=== PATIENT | male | born 1990 | race African-American/Black ===

== ENCOUNTER 2021-08-09 10:20 | Emergency (ER) | payer OTHER ==
[~2021-08-09] VITALS: Ht 190.5 cm; Wt 88.5 kg
[2021-08-09 10:33] VITALS: BP 110/70
[2021-08-09 10:59] LABS: BASOPHILS % (AUTO) 1.5 % (0.0-5.0); EOSINOPHILS % (AUTO) 12.7 % (0.0-8.0); HEMATOCRIT 35.7 % (42-54); LYMPHOCYTES % (AUTO) 23.7 % (21.0-51.0); MEAN CORPUSCULAR HGB CONC 36.7 g/dL (32.0-36.0); MEAN CORPUSCULAR VOLUME 81.7 fL (79-99); MONOCYTES % (AUTO) 23.7 % (3.0-13.0); NEUTROPHILS % (AUTO) 38.1 % (40.0-77.0); PLATELET COUNT (AUTO) 337 K/uL (130-400); RED BLOOD CELL COUNT(AUTO) 4.37 MIL/uL (4.50-6.20); WHITE BLOOD COUNT (AUTO) 7.2 K/uL (4.8-10.8)
[2021-08-09 11:03] LABS: CREATININE 1.2 mg/dL (0.5-1.5); POTASSIUM 4.1 mmol/L (3.5-5.1)
[2021-08-09 11:05] LABS: INR 1.02 (0.85-1.15); PROTHROMBIN TIME 11.1 SEC (9.6-11.6)
[2021-08-09 11:07] LABS: PARTIAL THROMBOPLASTIN TIME 27.7 SEC (26.3-35.5)
[2021-08-09 11:08] LABS: ALBUMIN 4.3 g/dL (3.5-5.0); BILIRUBIN,TOTAL 2.1 mg/dL (0.2-1.0); TOTAL PROTEIN, SERUM 8.7 g/dL (6.0-8.3)
[2021-08-09] MEDS ORDERED: PREDNISONE 20 MG TABLET PO ONE (12:30)
[2021-08-09] MEDS ORDERED: ALBUTEROL 0.083% 2.5 MG/3 ML INH IH ONE ×2 (12:30→13:33)
[2021-08-09] MEDS ORDERED: PRED20TA3 PO (12:59)
[2021-08-09] MEDS ORDERED: ALBU6.7H9 IH (12:59)
[2021-08-09 13:51] VITALS: BP 112/76
== END 2021-08-09 13:51 | disposition home or self-care (01) ==
LOC: EDH 10:20
DX: J20.9 Acute bronchitis, unspecified (principal); J45.901 Unspecified asthma with (acute) exacerbation; Z20.822 Contact with and (suspected) exposure to COVID-19; Z79.52 Long term (current) use of systemic steroids; Z79.899 Other long term (current) drug therapy; Z88.5 Allergy status to narcotic agent
CPT/HCPCS: 36415; 71045; 80053; 85025; 85610; 85730; 87088; 87635; 94640; 99284; C9803